=== PATIENT | male | born 1955 | race Two or more races ===

== ENCOUNTER 2017-02-22 18:28 | Emergency (ER) | payer OTHER ==
--- NOTE | 2017-02-22 19:24 | RAD ---
FINGER RIGHT HISTORY: Injury 9 hours ago with pain and bruising. COMPARISONS: None. FINDINGS: 3 views of the right fourth ray were performed demonstrating an oblique fracture involving the distal aspect of the distal phalanx of the fourth ray with associated soft tissue swelling. The remaining osseous structures appear to be appropriate. The carpal alignment is intact. The joint spaces are unremarkable. IMPRESSION: 1. A minimally displaced oblique fracture involving the distal aspect of the distal phalanx of the right fourth ray with associated soft tissue swelling.
== END 2017-02-22 19:51 | disposition home or self-care (01) ==
LOC: ED 18:28
DX: S62.634A Displaced fracture of distal phalanx of right ring finger, initial encounter for closed fracture (principal); W20.8XXA Other cause of strike by thrown, projected or falling object, initial encounter; Y93.H3 Activity, building and construction; Y92.513 Shop (commercial) as the place of occurrence of the external cause; Y99.0 Civilian activity done for income or pay